=== PATIENT | male | born 1955 | race Hispanic/Latino ===

== ENCOUNTER 2024-04-01 15:11 | Observation (INO) | payer BC, MEDICARE ==
[~2024-04-01] VITALS: Ht 165.1 cm; Wt 87.1 kg
[2024-04-01 15:47] LABS: BASOPHILS % 0.6 % (0.0-1.0); EOSINOPHILS # (AUTO) 0.1 (0.0-0.4); EOSINOPHILS % 1.5 % (0.0-6.0); HEMATOCRIT 40.4 % (38.2-49.6); HEMOGLOBIN 13.1 g/dL (14.0-18.0); LYMPHOCYTES # (AUTO) 1.4 (1.0-3.2); LYMPHOCYTES % 25.4 % (18.0-39.1); MEAN CORPUSCULAR HEMOGLOBIN 30.7 pg (28-32); MEAN CORPUSCULAR HGB CONC 32.4 g/dL (31-35); MEAN CORPUSCULAR VOLUME 94.6 fL (81-99); MONOCYTES # (AUTO) 0.4 (0.2-0.8); MONOCYTES % 7.8 % (4.4-11.3); NEUTROPHILS # (AUTO) 3.5 (2.1-6.9); NEUTROPHILS % 64.5 % (38.7-80.0); PLATELET COUNT 202 x10e3/uL (140-360); RED BLOOD COUNT 4.27 x10e6/uL (4.3-5.7); RED CELL DISTRIBUTION WIDTH 13.1 % (11.7-14.4); WHITE BLOOD COUNT 5.36 x10e3/uL (4.8-10.8)
[2024-04-01 16:03] LABS: INR 0.91; PARTIAL THROMBOPLASTIN TIME 25.6 seconds (23.8-35.5); PROTHROMBIN TIME 12.7 seconds (11.9-14.5)
[2024-04-01 16:13] LABS: ALBUMIN 4.3 g/dL (3.5-5.0); ALBUMIN/GLOBULIN RATIO 1.5 (0.8-2.0); ANION GAP 13.3 mmol/L (8-16); BILIRUBIN,TOTAL 0.3 mg/dL (0.2-1.2); CALCIUM 9.1 mg/dL (8.4-10.2); CREATININE, SERUM 1.13 mg/dL (0.72-1.25); MAGNESIUM 1.6 MG/DL (1.3-2.1); TOTAL PROTEIN 7.2 g/dL (6.5-8.1)
[2024-04-01 16:16] LABS: POTASSIUM 6.3 mmol/L (3.5-5.1)
[2024-04-01] MEDS: SODIUM CHLORIDE 0.9% 1000ML 1,000 ML IV STA (16:17)
[2024-04-01 16:19] LABS: TROPONIN I 0.029 ng/mL (0-0.300)
[2024-04-01] MEDS ORDERED: INSULIN REGULAR, HUMAN 100 UNIT/1 ML IV ONE (16:30)
[2024-04-01] MEDS ORDERED: SODIUM CHLORIDE 0.9% 1000ML 1,000 ML IV SCH (16:30)
[2024-04-01] MEDS ORDERED: ONDANSETRON HCL INJ 2MG/ML 2ML 2 MG/ML VIAL IV PRN (16:30)
[2024-04-01] MEDS: ASPIRIN 81 MG CHEW TAB PO STA (16:53)
[2024-04-01] MEDS: DEXTROSE 50% SYRINGE 50 ML IV STA ×2 (16:54→18:09)
[2024-04-01] MEDS: SODIUM BICARBONATE 8.4% INJ 50 ML SYR IV STA (16:55)
[2024-04-01] MEDS: CALCIUM GLUC 1 G/50 ML NACL 50 ML IV ONE (16:55)
[2024-04-01] MEDS: INSULIN REGULAR, HUMAN 100 UNIT/1 ML IV ONE (17:06)
[2024-04-01] MEDS: HYDRALAZINE HCL 20 MG/ML VIAL IV PRN (17:54)
[2024-04-01] MEDS ORDERED: DEXTROSE 50% SYRINGE 50 ML IV ONE (18:05)
[2024-04-01] MEDS: DEXTROSE 5%/0.45% SOD CHL 1,000 ML IV ONE (18:23)
[2024-04-01] MEDS: METOPROLOL TARTRATE 25 MG TAB PO ONE (19:05)
[2024-04-01 19:08] VITALS: PULSE 82; RESP 16; TEMP 98.3
[2024-04-01 19:44] LABS: BILIRUBIN,URINE NEGATIVE (NEGATIVE); CLARITY,URINE SL CLOUDY (CLEAR); COLOR,URINE YELLOW (YELLOW); GLUCOSE, URINE 1+ (NEGATIVE); KETONES,URINE NEGATIVE (NEGATIVE); LEUKOCYTE ESTERASE ,URINE NEGATIVE (NEGATIVE); NITRITE,URINE NEGATIVE (NEGATIVE); PH,URINE 5.5 (5 - 7); PROTEIN,URINE DIPSTICK NEGATIVE (NEGATIVE); URINE UROBILINOGEN 0.2 mg/dL (0.2 - 1)
[2024-04-01 19:54] LABS: BACTERIA,URINE RARE /HPF
[2024-04-01] MEDS: SOD POLYSTYRENE SULFONATE SUSP 15 GM/60 ML BTL PO ONE (20:46)
[2024-04-01] MEDS ORDERED: SOD POLYSTYRENE SULFONATE SUSP 15 GM/60 ML BTL ONE (20:50)
[2024-04-01 21:00] VITALS: BP 150/80; PULSE 98; RESP 18; TEMP 98.1
[2024-04-02] VITALS (9 sets, daily range): BP systolic 126–196; BP diastolic 52–114; PULSE 56–108; RESP 17–18; TEMP 97.8–98.7; O2SAT 98–100
[2024-04-02 02:10] LABS: ANION GAP 11.6 mmol/L (8-16); CALCIUM 8.8 mg/dL (8.4-10.2); CREATININE, SERUM 0.82 mg/dL (0.72-1.25); POTASSIUM 4.6 mmol/L (3.5-5.1)
[2024-04-02 02:41] LABS: TROPONIN I 0.044 ng/mL (0-0.300)
[2024-04-02 05:59] LABS: BASOPHILS % 0.8 % (0.0-1.0); EOSINOPHILS # (AUTO) 0.1 (0.0-0.4); EOSINOPHILS % 2.9 % (0.0-6.0); HEMOGLOBIN 11.4 g/dL (14.0-18.0); LYMPHOCYTES # (AUTO) 1.3 (1.0-3.2); LYMPHOCYTES % 35.2 % (18.0-39.1); MEAN CORPUSCULAR HEMOGLOBIN 30.9 pg (28-32); MEAN CORPUSCULAR HGB CONC 31.7 g/dL (31-35); MEAN CORPUSCULAR VOLUME 97.6 fL (81-99); MONOCYTES # (AUTO) 0.4 (0.2-0.8); MONOCYTES % 10.6 % (4.4-11.3); NEUTROPHILS # (AUTO) 1.9 (2.1-6.9); NEUTROPHILS % 50.2 % (38.7-80.0); PLATELET COUNT 177 x10e3/uL (140-360); RED BLOOD COUNT 3.69 x10e6/uL (4.3-5.7); RED CELL DISTRIBUTION WIDTH 13.2 % (11.7-14.4); WHITE BLOOD COUNT 3.78 x10e3/uL (4.8-10.8)
[2024-04-02 06:24] LABS: ALBUMIN 3.3 g/dL (3.5-5.0); ALBUMIN/GLOBULIN RATIO 1.4 (0.8-2.0); ANION GAP 12.2 mmol/L (8-16); BILIRUBIN,TOTAL 0.2 mg/dL (0.2-1.2); CALCIUM 8.1 mg/dL (8.4-10.2); CHOL/HDL RATIO 4.7 (3.9-4.7); CREATININE, SERUM 0.74 mg/dL (0.72-1.25); POTASSIUM 4.2 mmol/L (3.5-5.1); TOTAL PROTEIN 5.7 g/dL (6.5-8.1)
[2024-04-02] MEDS: ASPIRIN 81 MG ENTERIC COATED PO SCH (09:37)
[2024-04-02 10:09] LABS: TROPONIN I 0.052 ng/mL (0-0.300)
[2024-04-02] MEDS ORDERED: ALLOPURINOL300 MG PO (15:11)
[2024-04-02] MEDS ORDERED: LISINOPRIL40 MG PO (15:11)
[2024-04-02] MEDS ORDERED: SIMVASTATIN40 MG PO (15:11)
[2024-04-02] MEDS ORDERED: AMLODIPINE BESYL5 MG PO (15:11)
[2024-04-02] MEDS: AMLODIPINE BESYLATE 10 MG TAB PO SCH (17:09)
[2024-04-02] MEDS ORDERED: HYDROCHLOROTHIAZIDE 25 MG TAB PO SCH (18:30)
[2024-04-02] MEDS ORDERED: LOSARTAN POTASSIUM 25 MG TAB PO SCH (18:30)
[2024-04-02] MEDS ORDERED: NORVASC10 MG PO (18:40)
[2024-04-02] MEDS ORDERED: LOSARTAN POTASS25 MG PO (18:40)
[2024-04-02] MEDS ORDERED: HYDROCHLOROTH12.5 MG PO (18:40)
[2024-04-02] MEDS ORDERED: ASPIRIN EC81 MG PO (18:50)
[2024-04-02] MEDS: LOSARTAN POTASSIUM 25 MG TAB PO SCH (21:29)
[2024-04-02] MEDS: HYDROCHLOROTHIAZIDE 25 MG TAB PO SCH (21:30)
[2024-04-03] VITALS: BP 149/75; PULSE 57; RESP 18; TEMP 98.8; O2SAT 100
[2024-04-03 04:00] VITALS: BP 117/77; PULSE 67; RESP 18; TEMP 98.2; O2SAT 99
[2024-04-03 08:34] VITALS: BP 132/88; PULSE 59; RESP 20; TEMP 98.2; O2SAT 100
[2024-04-03] MEDS: ASPIRIN 81 MG CHEW TAB PO SCH (09:07)
[2024-04-03 11:00] VITALS: BP 143/80; PULSE 67; RESP 18; TEMP 98.3; O2SAT 100
[2024-04-03] MEDS ORDERED: SIMVASTATIN 20 MG TAB PO SCH (21:00)
== END 2024-04-03 11:30 | disposition home or self-care (01) ==
LOC: ER 15:23 → ERHOLD 16:29 → MED/SURG3 21:16
PROVIDERS: ADMIT Internal Medicine; ATTEND Internal Medicine
DX: E87.5 Hyperkalemia (principal); R07.89 Other chest pain; I16.0 Hypertensive urgency; E78.5 Hyperlipidemia, unspecified; R05.9 Cough, unspecified; F17.210 Nicotine dependence, cigarettes, uncomplicated; I44.7 Left bundle-branch block, unspecified; M10.9 Gout, unspecified; R01.1 Cardiac murmur, unspecified; Z20.822 Contact with and (suspected) exposure to COVID-19
CPT/HCPCS: 36415 ×2; 71045; 80048; 80053 ×2; 80061; 81001; 82550 ×2; 82948 ×3; 83735; 84484 ×2; 85025 ×2; 85610; 85730; 93005; 99252; 99284; G0378 ×3; J0360 ×2; J2470; J7030; J7799; U0002

== ENCOUNTER 2024-09-04 19:35 | Emergency (ER) | payer MEDICARE ==
[~2024-09-04] VITALS: Ht 165.1 cm; Wt 87.1 kg
[~2024-09-04 19:35] MED LIST: ALLOPURINOL300 MG PO; AMLODIPINE BESYL5 MG PO; ASPIRIN EC81 MG PO; HYDROCHLOROTH12.5 MG PO; LISINOPRIL40 MG PO; LOSARTAN POTASS25 MG PO; NORVASC10 MG PO; SIMVASTATIN40 MG PO
[2024-09-04 20:11] VITALS: TEMP 98.2
[2024-09-04] MEDS: OXYMETAZOLINE HCL 0.05% NAS 1 SPRAY BTL ONE (20:27)
[2024-09-04 20:58] LABS: BASOPHILS % 0.8 % (0.0-1.0); EOSINOPHILS # (AUTO) 0.1 (0.0-0.4); EOSINOPHILS % 1.9 % (0.0-6.0); HEMOGLOBIN 12.4 g/dL (14.0-18.0); LYMPHOCYTES # (AUTO) 1.5 (1.0-3.2); LYMPHOCYTES % 28.8 % (18.0-39.1); MEAN CORPUSCULAR HEMOGLOBIN 31.2 pg (28-32); MEAN CORPUSCULAR VOLUME 100.5 fL (81-99); MONOCYTES # (AUTO) 0.7 (0.2-0.8); MONOCYTES % 12.4 % (4.4-11.3); NEUTROPHILS % 55.9 % (38.7-80.0); PLATELET COUNT 219 x10e3/uL (140-360); RED BLOOD COUNT 3.98 x10e6/uL (4.3-5.7); RED CELL DISTRIBUTION WIDTH 12.7 % (11.7-14.4); WHITE BLOOD COUNT 5.32 x10e3/uL (4.8-10.8)
[2024-09-04 21:06] LABS: INR 0.98; PARTIAL THROMBOPLASTIN TIME 28.7 seconds (23.8-35.5); PROTHROMBIN TIME 13.6 seconds (11.9-14.5)
[2024-09-04 21:12] LABS: ANION GAP 14.8 mmol/L (8-16); CALCIUM 9.1 mg/dL (8.4-10.2); CREATININE, SERUM 0.77 mg/dL (0.72-1.25); POTASSIUM 3.8 mmol/L (3.5-5.1)
[2024-09-04] MEDS: DILTIAZEM HCL 5 MG/ML 5 ML VIAL IV STA (21:54)
[2024-09-04 22:01] LABS: HEMATOCRIT 37.1 % (38.2-49.6); HEMOGLOBIN 12.3 g/dL (14.0-18.0)
[2024-09-04 22:45] VITALS: PULSE 68; RESP 17
[2024-09-05] MEDS ORDERED: ONDANSETRON HCL INJ 2MG/ML 2ML 2 MG/ML VIAL IV STA (01:33)
[2024-09-05] MEDS ORDERED: Morphine 4mg INJECTION 4 MG/ML INJ IV ONE (01:45)
[2024-09-05 02:33] VITALS: BP 167/90; PULSE 70; O2SAT 97
== END 2024-09-05 02:35 | disposition other institution (70) ==
LOC: ER 20:09
DX: R04.0 Epistaxis (principal); I10 Essential (primary) hypertension; M10.9 Gout, unspecified; F17.210 Nicotine dependence, cigarettes, uncomplicated
CPT/HCPCS: 36415; 80048; 85014; 85018; 85025; 85610; 85730; 99284